=== PATIENT | male | born 1950 | race Two or more races ===

== ENCOUNTER 2016-08-31 08:05 | Day surgery (SDC) | payer OTHER ==
[2016-08-31] MEDS ORDERED: LACTATED RINGERS 1,000 ML IV ONE ×2 (08:30→09:12)
[2016-08-31] MEDS ORDERED: MIDAZOLAM 2 MG/2 ML VIAL IVP ONE (09:05)
[2016-08-31] MEDS ORDERED: fentaNYL 100 MCG/2 ML VIAL IVP ONE (09:05)
[2016-08-31 10:13] VITALS: BP 129/72
== END 2016-08-31 08:06 | disposition home or self-care (01) ==
LOC: SDS 08:05
PROVIDERS: ATTEND Surgery
PROC: 0DBK8ZX Excision of Ascending Colon, Via Natural or Artificial Opening Endoscopic, Diagnostic (ICD-10-PCS; principal; 2016-08-31 09:00)
DX: Z12.11 Encounter for screening for malignant neoplasm of colon (principal); K64.8 Other hemorrhoids; K57.30 Diverticulosis of large intestine without perforation or abscess without bleeding; E11.9 Type 2 diabetes mellitus without complications; I10 Essential (primary) hypertension; Z87.891 Personal history of nicotine dependence
CPT/HCPCS: 45380; J7120; 88305

== ENCOUNTER 2017-09-10 18:47 | Outpatient (CLI) | payer OTHER ==
--- NOTE | 2017-09-11 11:53 | Ultrasound Report ---
LIMITED PELVIC ULTRASOUND: 09/10/2017 HISTORY: Right lower abdominal bulge. TECHNIQUE: Realtime scanning by the dice table operator with saved static images reviewed. FINDINGS: Corresponding to the right groin bulge is a reducible fat-containing hernia measuring 1.4 x 2.6 cm with a neck measuring 7 mm. No bowel is identified within the hernia. IMPRESSION: THE PALPABLE BULGE IS A REDUCIBLE FAT-CONTAINING RIGHT INGUINAL HERNIA BY ULTRASOUND. TD: 09/11/2017 11:40
== END 2017-09-10 18:48 | disposition home or self-care (01) ==
LOC: DI 18:47
PROVIDERS: ATTEND Physician Assistant
DX: K40.90 Unilateral inguinal hernia, without obstruction or gangrene, not specified as recurrent (principal)
CPT/HCPCS: 76857